=== PATIENT | male | born 1955 | race Caucasian/White ===

== ENCOUNTER 2017-03-23 08:51 | Emergency (ER) | payer MEDICARE ==
[~2017-03-23] VITALS: Ht 190.5 cm; Wt 87.5 kg
[2017-03-23 08:54] VITALS: Ht 190.5 cm; Wt 87.5 kg
[2017-03-23] MEDS ORDERED: SULF1TAB31 PO (09:46)
[2017-03-23] MEDS ORDERED: HYDR-906 PO (09:46)
[2017-03-23] MEDS ORDERED: CEPH-443 PO (09:46)
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
[2017-03-23] MEDS ORDERED: HYDROCODONE/APAP (5/325) TAB PO ONE (10:00)
[2017-03-23] MEDS ORDERED: LIDOCAINE 1% (MDV) 20 ML INJ SC ONE (10:00)
== END 2017-03-23 11:18 | disposition home or self-care (01) ==
LOC: FTE 08:51
DX: L03.011 Cellulitis of right finger (principal)